=== PATIENT | female | born 1995 | race Caucasian/White ===

== ENCOUNTER → 2016-09-21 | Outpatient (REF) | payer BC, OTHER ==
[~2016-09-21] MED LIST: ACET65TA; AMO500 PO; AMOX875T; AMOXIL875 PO; CORTISPOR OTIC; LIDOPOW PO; TRAM50TA2; ULTRAM50 PO; [UNRECOGNIZED DRUG - CODE]; [UNRECOGNIZED DRUG - CODE] 1 TEASPOON; [UNRECOGNIZED DRUG - CODE] PO; [UNRECOGNIZED DRUG - CODE] PO; [UNRECOGNIZED DRUG - CODE] PO; [UNRECOGNIZED DRUG - CODE] PO; [UNRECOGNIZED DRUG - OTHER] TOPICAL
== END ==
LOC: M SFHCWAGY 10:06
PROVIDERS: ATTEND Nurse Practitioner Family
DX: Z12.4 Encounter for screening for malignant neoplasm of cervix (principal)
CPT/HCPCS: 87491; 87591; G0123

== ENCOUNTER → 2016-11-20 | Outpatient (CLI) | payer OTHER, BC ==
[~2016-11-20] MED LIST changes: -[UNRECOGNIZED DRUG - CODE] 1 TEASPOON; +[UNRECOGNIZED DRUG - CODE] [, 1 TEASPOON]
[2016-11-20 13:10] LABS: BASO % 0.6 % (0.0-1.0); EOS # 0.1 K/mm3 (0.0-0.50); EOS % 0.8 % (0.0-3.0); LARGE UNSTAINED CELL # 0.1 K/mm3 (0.0-0.4); LARGE UNSTAINED CELL % 1.3 % (0.0-4.0); LYMPH # 1.7 K/mm3 (1.5-6.5); MEAN CORPUSCULAR HEMOGLOBIN 29.7 pg (27.0-33.0); MEAN CORPUSCULAR HGB CONC 32.7 g/dl (32.0-36.5); MEAN CORPUSCULAR VOLUME 90.8 fl (80.0-96.0); MONO # 0.5 K/mm3 (0.0-0.8); MONO % 6.1 % (0.0-5.0); NEUTROPHILS # 5.3 K/mm3 (1.8-7.7); NEUTROPHILS % 70.3 % (36.0-66.0); PLATELET COUNT, AUTOMATED 291 k/mm3 (150-450); RED CELL DISTRIBUTION WIDTH 12.3 % (11.5-14.5); WHITE BLOOD COUNT 7.5 K/mm3 (4.0-10.0)
[2016-11-20 13:47] LABS: HBsAg Prenatal NEGATIVE (NEGATIVE)
== END ==
LOC: M SMT 09:37
PROVIDERS: ATTEND Advanced Practice Midwife
DX: Z34.81 Encounter for supervision of other normal pregnancy, first trimester (principal)

== ENCOUNTER → 2017-02-04 | Outpatient (CLI) | payer OTHER, BC ==
[~2017-02-04] MED LIST changes: +[UNRECOGNIZED DRUG - CODE] 1 TEASPOON; -[UNRECOGNIZED DRUG - CODE] [, 1 TEASPOON]
== END ==
LOC: M SMT 15:54
PROVIDERS: ATTEND Advanced Practice Midwife
DX: Z31.438 Encounter for other genetic testing of female for procreative management (principal)

== ENCOUNTER → 2017-02-11 | Outpatient (CLI) | payer OTHER, BC ==
--- NOTE | 2017-02-11 17:33 | REP ---
OB ULTRASOUND: Real-time sonographic evaluation of the gravid uterus is performed. There is a single living intrauterine gestation with estimated gestational age of 18 weeks 1 days based on LMP with EDC 07/14/2017. Today's measurements indicate appropriate growth. BPD 44 mm = 19 weeks 2 days, 82nd percentile HC 159 mm = 18 weeks 5 days, 69th percentile AC 122 mm = 17 weeks, 6 days, 45th percentile FL 27 mm = 18 weeks 2 days, 56th percentile HC/AC ratio 1.30, slightly above normal range of 1.07 to 1.26. Estimated weight 229 grams, 50th percentile. Cervix is closed and measures 4.8 cm in length. heart rate 137 beats per minute. SEEN/GROSSLY UNREMARKABLE Lateral ventricles Yes Posterior fossa Yes Upper lip No Four-chamber heart No LVOT No RVOT No Stomach Yes Cord insertion Yes Three vessel cord Yes Kidneys Yes Bladder Yes Spine Yes position: Variable. Placenta: Posterior and grade 0 with no previa or abruption. Amniotic fluid: Within normal limits. Signed by Danny Thornton MD 02/11/2017 05:45 P
== END ==
LOC: M RAD 12:17
PROVIDERS: ATTEND Advanced Practice Midwife
DX: Z36 Encounter for antenatal screening of mother (principal)

== ENCOUNTER → 2017-04-09 | Outpatient (CLI) | payer OTHER, BC ==
[2017-04-09 13:15] LABS: MEAN CORPUSCULAR HEMOGLOBIN 29.5 pg (27.0-33.0); MEAN CORPUSCULAR HGB CONC 32.6 g/dl (32.0-36.5); MEAN CORPUSCULAR VOLUME 90.5 fl (80.0-96.0); PLATELET COUNT, AUTOMATED 259 10^3/uL (150-450); WHITE BLOOD COUNT 11.8 10^3/uL (4.0-10.0)
== END ==
LOC: M SMT 09:35
PROVIDERS: ATTEND Advanced Practice Midwife
DX: Z34.82 Encounter for supervision of other normal pregnancy, second trimester (principal); Z3A.00 Weeks of gestation of pregnancy not specified

== ENCOUNTER → 2017-06-16 | Outpatient (REF) | payer OTHER, BC | LOC: M LAB REF 17:21 | DX: Z34.83 Encounter for supervision of other normal pregnancy, third trimester (principal); Z36.85 Encounter for antenatal screening for Streptococcus B ==

== ENCOUNTER 2017-07-17 23:44 | Inpatient (IN) | payer OTHER, BC ==
[2017-07-18] MEDS: LACTATED RINGER'S 1000 ML IV (01:30)
[2017-07-18 01:33] LABS: BASO % 0.3 % (0.0-1.0); EOS % 0.2 % (0.0-3.0); HEMATOCRIT 30.5 % (36.0-47.0); HEMOGLOBIN 9.9 g/dl (12.0-16.0); IMMATURE GRANULOCYTE % 0.7 % (0-3.0); LYMPH # 1.4 10^3/uL (1.5-6.5); LYMPH % 12.2 % (24.0-44.0); MEAN CORPUSCULAR HEMOGLOBIN 28.6 pg (27.0-33.0); MEAN CORPUSCULAR HGB CONC 32.5 g/dl (32.0-36.5); MEAN CORPUSCULAR VOLUME 88.2 fl (80.0-96.0); MONO # 0.9 10^3/uL (0.0-0.8); MONO % 7.3 % (0.0-5.0); NEUTROPHILS # 9.2 10^3/uL (1.8-7.7); NEUTROPHILS % 79.3 % (36.0-66.0); PLATELET COUNT, AUTOMATED 208 10^3/uL (150-450); RED BLOOD COUNT 3.46 10^6/uL (4.00-5.40); RED CELL DISTRIBUTION WIDTH 13.2 % (11.5-14.5); WHITE BLOOD COUNT 11.6 10^3/uL (4.0-10.0)
[2017-07-18 01:34] LABS: POS COUNT POS FLAG
[2017-07-18] MEDS: BUTORPHANOL 2 MG/ML INJ (J0595) IV ×2 (02:19→07:00)
[2017-07-18] MEDS: PROMETHAZINE INJ 25 MG/ML VIAL (J2550) IV ×2 (02:19→07:01)
[2017-07-18] MEDS: LR 1,000 ML IV ×3 (03:30→17:30)
[2017-07-18] MEDS ORDERED: OXYTOCIN 30 UNITS IN 0.9% NaCl 500ML IV BAG (J2590) As Ordered (05:13)
[2017-07-18] MEDS ORDERED: BUTORPHANOL 2 MG/ML INJ (J0595) As Ordered (05:32)
[2017-07-18] MEDS ORDERED: PROMETHAZINE INJ 25 MG/ML VIAL (J2550) As Ordered (05:33)
[2017-07-18] MEDS ORDERED: FENTANYL 2MCG/ML ROPIVACAINE 0.2% IN 0.9% NACL 200ML IVBAG As Ordered (06:34)
[2017-07-18] MEDS: OXYTOCIN DRIP 30 UNITS in APPROPRIATE DILUENT 1 EA IV ×2 (07:01→17:00)
[2017-07-18] MEDS ORDERED: diphenhydrAMINE INJ 50MG/ML VIAL (J1200) IV (08:00)
[2017-07-18] MEDS ORDERED: ONDANSETRON 4MG/2ML VIAL (J2405) IV ×2 (08:00→16:45)
[2017-07-18] MEDS ORDERED: EPIDURAL/PCA KEYS XX (08:00)
[2017-07-18] MEDS ORDERED: NALOXONE INJ 0.4 MG/1 ML VIAL (J2310) IV (08:00)
[2017-07-18] MEDS ORDERED: FENTANYL/ROPIVACAINE/NACL BAG 200 ML EPIDURAL (08:00)
[2017-07-18] MEDS ORDERED: REFRIGERATOR IV KEYS XX (08:00)
[2017-07-18] MEDS ORDERED: EPIDURAL COMMENT XX (08:00)
[2017-07-18] MEDS ORDERED: LACTATED RINGER'S 1000 ML IV (08:00)
[2017-07-18] MEDS: ePHEDrine SULFATE 25 MG/5 ML(5MG/ML) SYRINGE IV (08:17)
[2017-07-18] MEDS ORDERED: ACETAMINOPHEN 500 MG TAB PO (16:45)
[2017-07-18] MEDS ORDERED: PROMETHAZINE 25 MG TAB PO (16:45)
[2017-07-18] MEDS ORDERED: RHOGAM 300 MCG (1500 IU) INJ (J2790) IM (16:45)
[2017-07-18] MEDS: DIBUCAINE 1% OINTMENT 30GM TOP (20:00)
[2017-07-18] MEDS: DOCUSATE SODIUM 100 MG CAP PO (20:01)
[2017-07-18] MEDS: IBUPROFEN 800 MG TAB PO (20:01)
[2017-07-19] MEDS: IBUPROFEN 800 MG TAB PO (03:11)
[2017-07-19] MEDS: PRENATAL VITAMINS CHEWABLE TABLET PO (08:02)
[2017-07-20] MEDS: PRENATAL VITAMINS CHEWABLE TABLET PO (09:38)
== END 2017-07-20 10:25 | disposition home or self-care (01) | DRG 560 ==
LOC: M LDO 23:44 → M LDI 07-18 01:01 → M OBS 07-18 18:33
PROVIDERS: Obstetrics & Gynecology
PROC: 10E0XZZ Delivery of Products of Conception, External Approach (ICD-10-PCS; principal; 2017-07-18)
PROC: 0HQ9XZZ Repair Perineum Skin, External Approach (ICD-10-PCS; 2017-07-18)
PROC: 10907ZC Drainage of Amniotic Fluid, Therapeutic from Products of Conception, Via Natural or Artificial Opening (ICD-10-PCS; 2017-07-18)
DX: O48.0 Post-term pregnancy (principal); O69.89X0 Labor and delivery complicated by other cord complications, not applicable or unspecified; Z37.0 Single live birth; Z3A.40 40 weeks gestation of pregnancy; O70.0 First degree perineal laceration during delivery

== ENCOUNTER → 2018-04-27 | Outpatient (CLI) | payer OTHER, BC ==
[2018-04-27 18:56] LABS: BASO % 0.4 % (0.0-1.0); EOS # 0.1 10^3/uL (0.0-0.50); EOS % 0.6 % (0.0-3.0); HEMATOCRIT 37.8 % (36.0-47.0); HEMOGLOBIN 12.2 g/dl (12.0-15.5); IMMATURE GRANULOCYTE % 0.5 % (0-3.0); LYMPH # 2.1 10^3/uL (1.5-6.5); LYMPH % 21.1 % (24.0-44.0); MEAN CORPUSCULAR HEMOGLOBIN 28.7 pg (27.0-33.0); MEAN CORPUSCULAR HGB CONC 32.3 g/dl (32.0-36.5); MEAN CORPUSCULAR VOLUME 88.9 fl (80.0-96.0); MONO # 0.7 10^3/uL (0.0-0.8); MONO % 7.4 % (0.0-5.0); NEUTROPHILS # 6.9 10^3/uL (1.8-7.7); PLATELET COUNT, AUTOMATED 292 10^3/uL (150-450); RED BLOOD COUNT 4.25 10^6/uL (4.00-5.40); WHITE BLOOD COUNT 9.9 10^3/uL (4.0-10.0)
[2018-04-27 21:19] LABS: CHLAMYDIA DNA AMPLIFICATION NEGATIVE (NEGATIVE); GC DNA AMPLIFICATION NEGATIVE (NEGATIVE)
[2018-04-29 11:51] LABS: HEPATITIS C VIRUS ABY INDEX 0.1 INDEX (<0.8)
[2018-04-29 11:51] LABS: HBsAg Prenatal NEGATIVE (NEGATIVE); HIV 1&2 SCREEN CENTAUR NEGATIVE (NEGATIVE); RUBELLA IgG QUALITATIVE IMMUNE (IMMUNE)
== END ==
LOC: M SMT 11:11
DX: Z36.89 Encounter for other specified antenatal screening (principal)
CPT/HCPCS: 86762

== ENCOUNTER → 2018-05-10 | Outpatient (CLI) | payer OTHER ==
[~2018-05-10] MED LIST changes: +IBUP-1114 PO; +MAPA500T17 PO; +PRENTAB55 PO
== END ==
LOC: M WUC 15:12
PROVIDERS: ATTEND Obstetrics & Gynecology
DX: Z36.89 Encounter for other specified antenatal screening (principal)

== ENCOUNTER → 2018-06-30 | Outpatient (CLI) | payer BC, OTHER ==
[~2018-06-30] MED LIST changes: -MAPA500T17 PO; +MAPA500T2 PO
--- NOTE | 2018-07-01 02:24 | REP ---
Clinical: Anatomical evaluation. Comparison: None . Findings: Examination demonstrates a single live intrauterine in breech presentation. motion is identified by technologist. Placenta is noted anterior/left lateral and grade grade 1 without evidence for placenta previa or abruption. Amniotic fluid volume is normal. Cervix measures 4.5 cm in length and appears closed. No evidence for nuchal cord. Gestational age by LMP 19 weeks 3 days with CAT 11/21/2018 . Gestational age by current measurements 20 weeks 0 days with CAT 11/17/2018 . FHR equals 157 beats per minute. BPD 4.8 cm 20 weeks 3 days HC 17.2 cm 19 weeks 5 days AC 14.3 cm 19 weeks 5 days FL 3.3 cm 20 weeks 1 day HL 3.0 cm 20 weeks 0 days HC/AC ratio 1.20 Estimated weight 320 grams ( 65th percentile). Anatomical assessment demonstrates normal structures including cranium, choroid plexus, cavum, cerebellum/posterior fossa, facial features, lungs, diaphragm, stomach, cord insertion/three-vessel cord, kidneys/bladder, spine, and extremities. Limited evaluation of the facial profile and heart/ ventricular outflow tract. Impression: 1. Single live intrauterine in breech presentation demonstrating appropriate interval growth. 2. Anatomical limitations as noted above may warrant reevaluation and follow-up. Electronically Signed by Travis Baker MD 07/01/2018 02:15 A
== END ==
LOC: M RAD 15:55
PROVIDERS: ATTEND Advanced Practice Midwife
DX: Z34.82 Encounter for supervision of other normal pregnancy, second trimester (principal)

== ENCOUNTER → 2018-07-22 | Outpatient (CLI) | payer BC, OTHER ==
--- NOTE | 2018-07-22 11:46 | REP ---
Clinical: Anatomical evaluation. Comparison: 06/30/2018 . Findings: Examination demonstrates a single live intrauterine in cephalic presentation. motion is identified by technologist. Placenta is noted anterior and grade grade zero without evidence for placenta previa or abruption. Amniotic fluid volume is normal. Cervix measures 5.0 cm in length and appears closed. No evidence for nuchal cord. Gestational age by LMP 22 weeks 4 days with CAT 11/21/2018 . Gestational age by current measurements 22 weeks 6 days with CAT 11/19/2018 . FHR equals 149 beats per minute. Estimated weight 540 grams ( 53rd percentile). Anatomical assessment demonstrates normal structures including cranium, choroid plexus, cavum, cerebellum/posterior fossa, facial features, lungs, four-chamber heart/ventricular outflow tracts, diaphragm, stomach, cord insertion/three-vessel cord, kidneys/bladder, spine, and extremities. Impression: 1. Single live intrauterine in cephalic presentation demonstrating appropriate interval growth. 2. Anatomical assessment is complete and normal. Electronically Signed by Travis Baker MD 07/22/2018 11:38 A
== END ==
LOC: M RAD 09:35
PROVIDERS: ATTEND Advanced Practice Midwife
DX: O99.89 Other specified diseases and conditions complicating pregnancy, childbirth and the puerperium (principal); Z3A.22 22 weeks gestation of pregnancy

== ENCOUNTER → 2018-08-18 | Outpatient (CLI) | payer BC, OTHER ==
[2018-08-18 13:47] LABS: HEMATOCRIT 32.2 % (36.0-47.0); HEMOGLOBIN 10.4 g/dl (12.0-15.5); MEAN CORPUSCULAR HEMOGLOBIN 29.2 pg (27.0-33.0); MEAN CORPUSCULAR HGB CONC 32.3 g/dl (32.0-36.5); MEAN CORPUSCULAR VOLUME 90.4 fl (80.0-96.0); PLATELET COUNT, AUTOMATED 217 10^3/uL (150-450); RED BLOOD COUNT 3.56 10^6/uL (4.00-5.40); WHITE BLOOD COUNT 10.1 10^3/uL (4.0-10.0)
== END ==
LOC: M SMT 09:35
PROVIDERS: ATTEND Advanced Practice Midwife
DX: Z34.82 Encounter for supervision of other normal pregnancy, second trimester (principal); Z3A.00 Weeks of gestation of pregnancy not specified

== ENCOUNTER → 2018-10-25 | Outpatient (REF) | payer BC | LOC: M LAB REF 16:58 | PROVIDERS: ATTEND Obstetrics & Gynecology | DX: Z34.83 Encounter for supervision of other normal pregnancy, third trimester (principal) ==

== ENCOUNTER → 2018-10-27 | Outpatient (CLI) | payer BC ==
--- NOTE | 2018-10-28 03:14 | REP ---
Clinical: Growth evaluation. Comparison: 07/22/2018 . Findings: Examination demonstrates a single live intrauterine in cephalic presentation. motion is identified by technologist. Placenta is noted anterior and grade three without evidence for placenta previa or abruption. Amniotic fluid volume is normal. Cervix appears closed. No evidence for nuchal cord. Gestational age by LMP 36 weeks 3 day with CAT 11/21/2018 . Gestational age by current measurements 36 weeks 4 days with CAT 11/20/2018 . FHR equals 160 beats per minute. BPD 9.3 cm 38 weeks 0 days HC 32.8 cm 37 weeks 2-day AC 31.8 cm 35 weeks 5 days FL 7.1 cm 36 weeks 3 days HL 6.2 cm 35 weeks 4 days HC/AC ratio 1.03 Estimated weight 2913 grams ( 51 percentile). Amniotic fluid index: 17.7 cm Umbilical cord SD ratio: 2.24 Impression: Single live intrauterine in cephalic presentation demonstrating appropriate interval growth. No gross abnormalities are identified. Electronically Signed by Travis Baker MD 10/28/2018 03:06 A
== END ==
LOC: M RAD 11:02
PROVIDERS: ATTEND Obstetrics & Gynecology
DX: O26.843 Uterine size-date discrepancy, third trimester (principal); Z3A.36 36 weeks gestation of pregnancy

== ENCOUNTER 2018-11-14 08:35 | Inpatient (IN) | payer BC ==
[~2018-11-14] VITALS: Ht 170.2 cm; Wt 84.0 kg
[2018-11-14] VITALS (7 sets, daily range): BP systolic 112–130; BP diastolic 57–71
[2018-11-14] MEDS ORDERED: LR 1,000 ML IV SCH (11:19)
[2018-11-14] MEDS ORDERED: LACTATED RINGER'S 1000 ML IV STA (11:19)
[2018-11-14] MEDS ORDERED: OXYTOCIN DRIP 30 UNITS in APPROPRIATE DILUENT 1 EA IV SCH ×2 (11:30→12:56)
[2018-11-14 12:00] LABS: HEMATOCRIT 31.7 % (36.0-47.0); HEMOGLOBIN 10.2 g/dl (12.0-15.5); MEAN CORPUSCULAR HEMOGLOBIN 28.4 pg (27.0-33.0); MEAN CORPUSCULAR HGB CONC 32.2 g/dl (32.0-36.5); MEAN CORPUSCULAR VOLUME 88.3 fl (80.0-96.0); PLATELET COUNT, AUTOMATED 202 10^3/uL (150-450); RED BLOOD COUNT 3.59 10^6/uL (4.00-5.40); WHITE BLOOD COUNT 13.8 10^3/uL (4.0-10.0)
[2018-11-14] MEDS ORDERED: ACETAMINOPHEN 500 MG TAB PO PRN (13:00)
[2018-11-14] MEDS ORDERED: IBUPROFEN 800 MG TAB PO PRN (13:00)
[2018-11-14] MEDS ORDERED: METHYLERGONOVINE MALEATE 0.2 MG TAB PO PRN (13:00)
[2018-11-14] MEDS ORDERED: RHOGAM 300 MCG (1500 IU) INJ (J2790) IM SCH (13:00)
[2018-11-14] MEDS ORDERED: MEASLES,MUMPS,RUBELLA VACCINE INJ (MMR-II) (90707) SC SCH (13:00)
[2018-11-14] MEDS ORDERED: DIBUCAINE 1% OINTMENT 30GM TOP PRN (13:00)
[2018-11-14] MEDS ORDERED: ACETAMINOPHEN TAB 650MG DOSE (2X325MG) PO PRN (13:00)
[2018-11-14] MEDS ORDERED: DOCUSATE SODIUM 100 MG CAP PO PRN (13:00)
[2018-11-14] MEDS ORDERED: IBUPROFEN 600 MG TAB PO PRN (13:00)
--- NOTE | 2018-11-14 16:54 | HPE ---
DATE OF ADMISSION: 11/14/2018 The patient is a 23-year-old female who is a 2 para 1 0 0 1 at 39 weeks gestation with an CAT of 11/21/2018 based off of her last menstrual cycle and consistent with her first trimester ultrasound. Patient initiated care in her first trimester with [facility]. Her has been uncomplicated. She presents to labor and delivery with complaints of contractions that are every 5 minutes. She reports her contractions started at 1:30 am. She reports active movement. She denies vaginal bleeding or leaking of fluid. ALLERGIES: No known drug allergies. CURRENT MEDICATIONS: vitamins. PAST PREGNANCIES: 06/2017, she had a spontaneous vaginal delivery of a female weighing 8 pounds at 40 weeks and 6 weeks gestation that was uncomplicated. LABS: Blood type is A positive with her antibody screen that is negative. Her H and H in the first trimester was 12.2 and 37.8 with platelets of 292. She is immune to rubella, nonreactive to VDRL. Her urine has no growth. Hepatitis B surface antigen was negative. HIV was negative. Hepatitis C is nonreactive. Gonorrhea and chlamydia are both negative. Her NIPT testing was low risk and showed that she was having a normal male. Her 1 hour glucose tolerance test was 110 with a hemoglobin and hematocrit of 10.4 and 32.2 with platelets of 217. Her GBS was negative. PAST MEDICAL HISTORY: Gallbladder issues. SURGICAL HISTORY: She has had her wisdom teeth removed. FAMILY HISTORY: Diabetes. SOCIAL HISTORY: Patient is . She denies a history of physical, emotion or sexual abuse. She denies being a smoker. She denies a history of alcohol abuse or use during her or drug abuse or use during her or prior to her . She has no history of sexually transmitted infections. VITAL SIGNS: Temperature 99. Her respiratory rate is 18. Her blood pressure was 112/71 and her heart rate was 93. Initial cervical exam at 0908 was 2 cm dilated, 75% effaced and very posterior - 2 station. heart rate 140 moderate variability, positive accelerations. No decelerations. Contraction 5-6 minutes apart. PHYSICAL EXAMINATION: GENERAL: Alert and oriented. RESPIRATORY: Regular rate with no use of accessory muscles. ABDOMEN: Gravid and soft with palpation without tenderness. Palpates mild to moderate with contractions. EXTREMITIES: Generalized edema with no pitting. No clonus noted. ASSESSMENT: Intrauterine at 39 weeks gestation, active labor, category 1 heart rate tracing, a negative GBS. PLAN: Patient admitted to labor and delivery due to increasingly getting more uncomfortable with contractions and active labor. Saline lock and labs per unit protocol, out of bed at jigar, clear liquid diet. Anesthesia consult per patient's request. 800 mL LR bolus prior to epidural. Anticipate cervical change and spontaneous vaginal delivery. IV Pitocin ordered if needed for labor. MTDD
[2018-11-15 06:00] VITALS: BP 109/55
[2018-11-15] MEDS ORDERED: IBUP80TA PO (07:09)
[2018-11-15] MEDS ORDERED: ACET-683 PO (07:09)
--- NOTE | 2018-11-15 08:37 | DN ---
DELIVERY DATE: 11/14/2018 TIME: 12:18 p.m. STATUS: Delivered. Spontaneous vaginal delivery. PROVIDER: Sharon Torre CNM, [facility] ANESTHESIA: None. ESTIMATED BLOOD LOSS: 200. FINDINGS: Male, 7 pounds 8 ounces, 3400 grams, 's 8/9, precipitous delivery, velamentous cord insertion with avulsion or cord. Patient is a 23-year-old female who is now a 2 para 2 0 0 2 at 39 weeks gestation who presented to labor and delivery in active labor. She progressed to fully dilated at 12:13 and pushed to a living male in the CÉSAR position with restitution to ROT at 12:18 p.m.. The anterior shoulder delivered with ease and the corpus immediately followed. The baby was placed on the maternal abdomen active and crying with stimulation. The cord was clamped times two after 3 minutes and cut by the father of the baby. A three vessel cord was noted. The placenta delivered manually after the cord was avulsed and noted that there was a velamentous insertion. Dr. Hernandez was notified when the avulsion of the cord happened. The placenta was delivered intact at 12:34. Uterine hemostasis was achieved rapid infusion of IV pitocin and fundal massage. The vagina, perineum and cervix were inspected and found to be intact. The parents plan on naming their Crew. Mom plans to breastfeed. Both mom and baby are in stable condition. All counts of instruments and sponges were correct.
[2018-11-15] MEDS ORDERED: PRENATAL VITAMINS CHEWABLE TABLET PO SCH (09:00)
== END 2018-11-15 17:10 | disposition home or self-care (01) | DRG 560 ==
LOC: M LDO 08:35 → M LDI 11:16 → M OBS 14:26
PROVIDERS: ADMIT Advanced Practice Midwife; ATTEND Advanced Practice Midwife
PROC: 10E0XZZ Delivery of Products of Conception, External Approach (ICD-10-PCS; principal; 2018-11-14)
DX: O69.89X0 Labor and delivery complicated by other cord complications, not applicable or unspecified (principal); Z37.0 Single live birth; Z3A.39 39 weeks gestation of pregnancy

== ENCOUNTER → 2020-03-27 | Outpatient (CLI) | payer BC, OTHER ==
[~2020-03-27] MED LIST changes: +ACET-683 PO; +IBUP80TA PO
[2020-03-27 14:12] LABS: HEMATOCRIT 38.3 % (36.0-47.0); HEMOGLOBIN 12.3 g/dl (12.0-15.5); MEAN CORPUSCULAR HEMOGLOBIN 28.9 pg (27.0-33.0); MEAN CORPUSCULAR HGB CONC 32.1 g/dl (32.0-36.5); MEAN CORPUSCULAR VOLUME 89.9 fl (80.0-96.0); PLATELET COUNT, AUTOMATED 287 10^3/uL (150-450); RED BLOOD COUNT 4.26 10^6/uL (4.00-5.40)
[2020-03-27 15:04] LABS: HIV 1&2 SCREEN CENTAUR NEGATIVE (NEGATIVE)
== END ==
LOC: M PLALAB 08:58
PROVIDERS: ATTEND Specialist
DX: Z34.01 Encounter for supervision of normal first pregnancy, first trimester (principal)

== ENCOUNTER → 2020-04-25 | Outpatient (REF) | payer OTHER | LOC: M PLALAB 09:21 | PROVIDERS: ATTEND Advanced Practice Midwife | DX: Z34.91 Encounter for supervision of normal pregnancy, unspecified, first trimester (principal) ==

== ENCOUNTER → 2020-06-12 | Outpatient (CLI) | payer OTHER ==
--- NOTE | 2020-06-13 11:02 | REP ---
INDICATION: ANATOMY COMPARISON: None. TECHNIQUE: Transabdominal obstetrical ultrasound with color Doppler evaluation. FINDINGS: Examination demonstrates a single live intrauterine in breech presentation. motion is identified by technologist. Placenta is noted anterior and grade 1 without evidence for placenta previa or abruption. Amniotic fluid volume is normal. Cervix measures 3.8 cm in length and appears closed.. Gestational age by current measurements 20 weeks 2 days with CAT 10/28/2020. FHR equals 153 beats per minute. BPD: 4.6 cm 19 weeks 6 days HC: 17.0 cm 19 weeks 4 days AC: 15.2 cm 20 weeks 3 days FL: 3.3 cm 20 weeks 1 day HL: 3.3 cm 21 weeks 0 days HC/AC: 1.12 Estimated weight 340 grams (46thpercentile). Anatomical assessment demonstrates normal structures including cranium, choroid plexus, cavum, cerebellum/posterior fossa, facial features, lungs, ventricular outflow tracts, diaphragm, stomach, cord insertion/three-vessel cord, kidneys/bladder, spine, and extremities. IMPRESSION: Single live intrauterine in breech presentation demonstrating appropriate estimated weight. Limited evaluation of the heart. Remainder of the anatomical assessment is complete and normal. <Electronically signed by Travis Baker > 06/13/20 [id number]
== END ==
LOC: M WHC 14:21
PROVIDERS: ATTEND Advanced Practice Midwife
DX: O32.1XX0 Maternal care for breech presentation, not applicable or unspecified (principal); Z3A.20 20 weeks gestation of pregnancy

== ENCOUNTER → 2020-07-12 | Outpatient (CLI) | payer OTHER ==
--- NOTE | 2020-07-12 19:35 | REP ---
INDICATION: F/U ANATOMY/CAT 11/01/20. COMPARISON: 06/12/2020 TECHNIQUE: Limited Ob ultrasound for re-evaluation anatomy as the four-chamber heart view was not optimally seen. FINDINGS: Scanning demonstrates a viable single intrauterine gestation in a breech lie. motion is observed and heart rate is recorded at 149 beats per minute. An anterior, grade 1 placenta is seen without evidence of previa. Mid cord insertion noted. Amniotic fluid is subjectively normal. Closed cervical length is measured at 4 cm transabdominally. No extrauterine abnormality is observed. There has been appropriate interval growth. Four-chamber heart view was unremarkable except for a small echogenic intracardiac focus in the left ventricle, likely calcification on the chordee tendineae. Biometry chart: BPD 6.1 cm; 24 weeks 5 days Head circumference 22.2 cm; 24 weeks 2 days Abdominal circumference 19.9 cm; 24 weeks 4 days Femur length 4.5 cm; 24 weeks 5 days Humeral length 4.3 cm; 25 weeks 5 days HC/AC ratio normal 1.11 Cephalic index normal 0.77 Estimated weight 711 grams, 1 pounds 9 ounces, 69th percentile for 24 weeks 0 days. IMPRESSION: Viable single intrauterine gestation at 24 weeks 5 days by today's composite sonographic criteria. Expected gestational age estimate based on prior sonography is 24 weeks is 4 days. CAT by prior sonography 10/28/2020. <Electronically signed by Braden Sena > 07/12/20 [id number]
== END ==
LOC: M WHC 14:19
PROVIDERS: ATTEND Advanced Practice Midwife
DX: Z36.9 Encounter for antenatal screening, unspecified (principal); Z3A.24 24 weeks gestation of pregnancy

== ENCOUNTER → 2020-08-02 | Outpatient (REF) | payer OTHER ==
[2020-08-02 11:10] LABS: HEMATOCRIT 33.5 % (36.0-47.0); HEMOGLOBIN 10.8 g/dl (12.0-15.5); MEAN CORPUSCULAR HEMOGLOBIN 29.8 pg (27.0-33.0); MEAN CORPUSCULAR HGB CONC 32.2 g/dl (32.0-36.5); MEAN CORPUSCULAR VOLUME 92.3 fl (80.0-96.0); PLATELET COUNT, AUTOMATED 244 10^3/uL (150-450); RED BLOOD COUNT 3.63 10^6/uL (4.00-5.40); WHITE BLOOD COUNT 10.5 10^3/uL (4.0-10.0)
== END ==
LOC: M PLALAB 08:04
PROVIDERS: ATTEND Advanced Practice Midwife
DX: Z34.82 Encounter for supervision of other normal pregnancy, second trimester (principal); Z3A.00 Weeks of gestation of pregnancy not specified

== ENCOUNTER → 2020-10-02 | Outpatient (REF) | payer OTHER | LOC: M SFHCWAGY 12:48 | PROVIDERS: ATTEND Advanced Practice Midwife | DX: O99.013 Anemia complicating pregnancy, third trimester (principal); Z3A.00 Weeks of gestation of pregnancy not specified ==

== ENCOUNTER → 2020-10-25 | Outpatient (CLI) | payer OTHER ==
--- NOTE | 2020-10-25 13:40 | REP ---
INDICATION: SIZE/DATE DISCREP/GROWTH COMPARISON: 07/12/2020 TECHNIQUE: Transabdominal obstetrical ultrasound with color Doppler evaluation. FINDINGS: Examination demonstrates a single live intrauterine in cephalic presentation. motion is identified by technologist. Placenta is noted anterior and grade 3 without evidence for placenta previa or abruption. Amniotic fluid volume is normal. Selected gestational age: 39 weeks 0 days with CAT 11/01/2020. Gestational age by current measurements 38 weeks 6 days with CAT 11/02/2020. FHR equals 142 beats per minute. BPD: 9.5 cm at 30 weeks 4 days HC: 34.1 cm at 39 weeks 2 days AC: 34.4 cm at 38 weeks 2 days FL: 7.6 cm at 30 weeks 6 days HL: 6.8 cm at 39 weeks 2 days HC/AC: 0.99 Estimated weight 3522 grams (58thpercentile). CHELSIE: 12.3 cm (7.2-22.6) Umbilical artery SD ratio: 2.75 (1.51-3.29) IMPRESSION: Single live advanced gestation in cephalic presentation demonstrating appropriate estimated weight and growth. <Electronically signed by Travis Baker > 10/25/20 [id number]
== END ==
LOC: M WHC 12:55
PROVIDERS: ATTEND Advanced Practice Midwife
DX: O26.843 Uterine size-date discrepancy, third trimester (principal); Z3A.39 39 weeks gestation of pregnancy

== ENCOUNTER 2020-11-04 23:49 | Inpatient (IN) | payer OTHER ==
[~2020-11-04] VITALS: Ht 172.7 cm; Wt 91.5 kg
[2020-11-05] VITALS (36 sets, daily range): BP systolic 86–142; BP diastolic 46–79
[2020-11-05] MEDS ORDERED: LACTATED RINGER'S 1000 ML IV STA (00:18)
[2020-11-05] MEDS ORDERED: LIDOCAINE 1% MDV 20ML VIAL INFIL PRN (00:20)
[2020-11-05] MEDS ORDERED: CARBOPROST TROMETHAMINE 250 MCG/ML AMP IM PRN (00:20)
[2020-11-05] MEDS ORDERED: METHYLERGONOVINE MALEATE 0.2 MG/ML VIAL (J2210) IM PRN (00:20)
[2020-11-05] MEDS ORDERED: TRANEXAMIC ACID INJection 1,000 MG in NS 100 ML IV PRN (00:20)
[2020-11-05] MEDS ORDERED: OXYTOCIN DRIP 30 UNITS in IV 1 EA IV SCH (00:20)
[2020-11-05] MEDS ORDERED: LR 1,000 ML IV SCH (00:20)
[2020-11-05] MEDS ORDERED: OXYTOCIN DRIP 30 UNITS in IV 1 EA IV PRN (00:20)
--- NOTE | 2020-11-05 00:37 | HPEPDOC ---
Obstetrical History & Physical General Date of Admission Nov 04, 2020 at 23:49 Primary Care Physician: SONY ESPARZA CNM History of Present Illness Aaron is a 25-year-old female who is a who is 40.3 weeks gestation with an CAT of 11/01/20 based off of her LMP and consistent with her first trimester ultrasound. Her has been uncomplicated. She presents for an elective induction of labor. She reports active movement and some contractions. She denies leaking of fluid or vaginal bleeding. Information Provided By: Patient Age: 25 : 3 Term: 2 Pre-term: 0 Abortions: 0 Livin Care Care: Good Care Dating Final EDC: Nov 01, 2020 Final EDC by: LMP EGA at Admission: 40.3 Past Medical History Past Obstetrical History #1: Past Obstetrical History: Primgravida Date of Delivery: Jul 18, 2017 Gestation: 40 Type of Delivery: Spontaneous Vaginal Del. Sex of : Female (8 lbs) Complications: No Past Obstetrical History #2: Past Obstetrical History: Multigravida Date of Delivery: Nov 14, 2018 Gestation: 39 Type of Delivery: Spontaneous Vaginal Del. Sex of : Male (7 lbs 5 oz) Complications: No WIRE DRAWER History: Ovarian cysts Past Medical History Medical History migraines 2nd degree scoliosis Surgical History: [place] teeth Family History Significant Family History: Cancer (prostate), Diabetes, Hypertension Social History Social history [place] [facility] [employer] Marital Status: Family situation: Spouse/partner home Psychosocial History: No pertinent psych hx * Smoker: non-smoker Alcohol: Denies Drugs: denies Abuse Violence Screening Have you been hit/kicked/slapp: No Have you been sexually assault: No Allergies Coded Allergies: No Known Allergies (Unverified , 11/14/18) Medications Scheduled [id number]/Iron Fum/Folic/Docusate ( 19 Tablet) 1 Tab Tab, 1 TAB PO DAILY Scheduled PRN Acetaminophen (Acetaminophen) 500 Mg Tablet, 1,000 MG PO Q6HP PRN for PAIN Ibuprofen (Ibuprofen) 800 Mg Tablet, 800 MG PO Q8HP PRN for PAIN Physical Examination Physical Examination GENERAL: Alert and oriented times three. BREAST: . ABDOMEN: Gravid and non-tender to touch. FETUS: Is vertex (VTX) by sterile vaginal examination (SVE), fetus is vertex (VTX) by Otis. LUNGS: Clear to auscultation (CTA). EXTREMITIES: No edema. No clonus. Deep tendon reflexes (DTRs) + 2. Laboratory Data 24H LABS Laboratory Tests 2 11/04/20 23:54: Serology Scanned Report Hepatitis B Testing Urine Culture: No Growth Pertinent Laboratoy Data Blood Type: A+ RBC Antibody Screen: Negative HIV: Negative Hepatitis B: Negative Hepatitis C: Negative Rapid Plasma Reagin: Nonreactive Rubella: Immune Chlamydia/Gonorrhea: Negative Group B Streptococcus: Negative Glucose Tolerance Test: 100 Anatomy Ultrasound Ultrasound Date: Oct 23, 2020 Placenta Location: Anterior Normal Anatomy: Yes Placenta Previa: No Estimated Weight (grams): 3522 Vaginal Examination Dilation: 3 cm Effacement: other (75%) Station: -2 Cervical Consistency: Soft Cervical Position: Middle Presentation: Cephalic presentation Assessment Heart Rate (FHR): 130 Variability: Moderate Accelerations: Positive Decelerations: None Tocometer Contractions: Yes Frequency: regular Multi-drug resistant Organism: No history of MDRO Assessment/Plan Assessment IUP at GBS negative Category I FHR tracing elective induction of labor Plan Admit to L&D. OOB ad jigar. Diet: clear. Group B Streptococcus (GBS) negative. Labs and intravenous (IV) per unit protocol. Counseled on Pitocin for induction of labor. Anesthesia consult per patient's request. Lactated Ringers (LR): Bolus 800 mL prior to epidural, then at 125 mL/hr. Anticipate cervical change and . C-S as appropriate. SONY ESPARZA CNM Nov 05, 2020 00:37
[2020-11-05 00:56] LABS: HEMOGLOBIN 10.4 g/dl (12.0-15.5); MEAN CORPUSCULAR HEMOGLOBIN 29.5 pg (27.0-33.0); MEAN CORPUSCULAR HGB CONC 32.5 g/dl (32.0-36.5); MEAN CORPUSCULAR VOLUME 90.7 fl (80.0-96.0); PLATELET COUNT, AUTOMATED 220 10^3/uL (150-450); RED BLOOD COUNT 3.53 10^6/uL (4.00-5.40); WHITE BLOOD COUNT 8.5 10^3/uL (4.0-10.0)
[2020-11-05] MEDS ORDERED: FENTANYL 2MCG/ML ROPIVACAINE 0.2% IN 0.9% NACL 100ML IVBAG As Ordered ONE (02:37)
[2020-11-05] MEDS ORDERED: CALCIUM CARBONATE 500 MG CHEW U/D PO PRN (03:10)
[2020-11-05] MEDS ORDERED: REFRIGERATOR IV KEYS XX PRN (03:50)
[2020-11-05] MEDS ORDERED: FENTANYL/ROPIVACAINE/NACL BAG 100 ML EPIDURAL SCH (03:50)
[2020-11-05] MEDS ORDERED: LACTATED RINGER'S 1000 ML IV PRN (03:50)
[2020-11-05] MEDS ORDERED: diphenhydrAMINE 50MG/ML VIAL (J1200) IV PRN (03:50)
[2020-11-05] MEDS ORDERED: ONDANSETRON 4MG/2ML VIAL IV PRN ×2 (03:50→11:05)
[2020-11-05] MEDS ORDERED: EPIDURAL COMMENT XX SCH (03:50)
[2020-11-05] MEDS ORDERED: NALOXONE INJ 0.4MG/1ML VIAL (J2310 PER 1MG) IV PRN (03:50)
[2020-11-05] MEDS ORDERED: EPIDURAL/PCA KEYS XX PRN (03:50)
[2020-11-05] MEDS: ePHEDrine SULFATE 25 MG/5 ML(5MG/ML) SYRINGE IV PRN ×3 (04:25→05:22)
--- NOTE | 2020-11-05 08:27 | IPNPDOC ---
Obstetrical Progress Note Date of Service Nov 05, 2020 Subjective comfortable with epidural. Does not feel contractions. Objective Vital Signs Date Time Temp Pulse Resp B/P (MAP) Pulse Ox O2 Delivery O2 Flow Rate FiO2 11/05/20 05:46 97.4 114 18 108/64 (79) Assessment Variability: Moderate Accelerations: Positive Decelerations: None Heart Rate Tracing: Category I Tocometer Contractions: Yes Frequency: regular Duration: less than 60 seconds Strength: palpated as moderate Sterile Vaginal Examination Dilation: 4 cm Effacement (%): 70% Station: -2 Cervical Consistency: Medium Postion/Presentation: Cephalic presentation Assessment and Plan Age: 25 : 3 Term: 2 Pre-term: 0 Abortions: 0 Livin Status: Reassuring Additional Comments AROM with moderate meconium noted 25 yo at 40 4/7 weeks, in labor following induction Pitocin at 4 mu/min currently Pt made aware of meconium Continuous monitoring of fetus per protocol TOM BLANK MD Nov 05, 2020 08:26
[2020-11-05] MEDS ORDERED: RHOGAM 300 MCG (1500 IU) INJ (J2790) IM SCH (11:05)
[2020-11-05] MEDS ORDERED: MEASLES,MUMPS,RUBELLA VACCINE INJ (MMR-II) (90707) SC SCH (11:05)
[2020-11-05] MEDS ORDERED: DOCUSATE SODIUM 100MG CAPSULE PO PRN (11:05)
[2020-11-05] MEDS ORDERED: METHYLERGONOVINE MALEATE 0.2 MG TAB PO PRN (11:05)
[2020-11-05] MEDS ORDERED: ACETAMINOPHEN TAB 650MG DOSE (2X325MG) PO PRN (11:05)
[2020-11-05] MEDS ORDERED: OXYTOCIN DRIP 30 UNITS in IV 1 EA IV ONE (11:05)
[2020-11-05] MEDS ORDERED: IBUPROFEN 600MG TAB PO PRN (11:05)
[2020-11-05] MEDS ORDERED: DIBUCAINE 1% OINTMENT 30GM TOP PRN (11:05)
[2020-11-05] MEDS ORDERED: ACETAMINOPHEN 500 MG TAB PO PRN (11:05)
--- NOTE | 2020-11-05 11:10 | DNPDOC ---
[facility] Delivery Note Delivery Note DATE OF DELIVERY: November 05, 2020 PREDELIVERY DIAGNOSIS: 40-3/7 weeks' gestation, labor induction. POST DELIVERY DIAGNOSIS: Delivered. PROCEDURE: Spontaneous vaginal delivery. DRUM BUILDER: Dr. Tom Blank MD ANESTHESIA: epidural. ESTIMATED BLOOD LOSS: 300 mL. FINDINGS: 7 pound 5 ounce male infant, Score 8/9, moderate meconium present. DELIVERY SUMMARY: Patient is a 25-year-old 3 now para 3 who was admitted to labor and delivery for labor induction. She received Misoprostol. She eventually got an epidural. AROM was performed with moderate meconium present. She progressed well in labor. After a 5 minute second stage of labor she had a spontaneous vaginal delivery of a 7 lb. 5 oz. male infant. No nuchal cord. Shoulders delivered with ease. Placenta delivered spontaneously and appeared intact. Pt received IV Pitocin immediately after delivery of the placenta. No vaginal lacerations present. Sponge counts correct. TOM BLANK MD Nov 05, 2020 11:10
[2020-11-05] MEDS: IBUPROFEN 800 MG TAB PO PRN (19:50)
[2020-11-06] MEDS: IBUPROFEN 800 MG TAB PO PRN (05:37)
[2020-11-06 06:00] VITALS: BP 111/57
[2020-11-06] MEDS ORDERED: PRENATAL VITAMINS CHEWABLE TABLET PO SCH (09:00)
== END 2020-11-06 12:37 | disposition home or self-care (01) | DRG 807 ==
LOC: M LDI 23:49 → M OBS 11-05 12:10
PROVIDERS: ADMIT Advanced Practice Midwife; ATTEND Specialist
PROC: 10E0XZZ Delivery of Products of Conception, External Approach (ICD-10-PCS; principal; 2020-11-05)
PROC: 3E0P7GC Introduction of Other Therapeutic Substance into Female Reproductive, Via Natural or Artificial Opening (ICD-10-PCS; 2020-11-05)
PROC: 10907ZC Drainage of Amniotic Fluid, Therapeutic from Products of Conception, Via Natural or Artificial Opening (ICD-10-PCS; 2020-11-05)
DX: O48.0 Post-term pregnancy (principal); Z37.0 Single live birth; Z3A.40 40 weeks gestation of pregnancy; O77.0 Labor and delivery complicated by meconium in amniotic fluid

== ENCOUNTER → 2023-04-21 | Outpatient (REF) | payer OTHER | LOC: M SFHCWAGY 10:18 | PROVIDERS: ATTEND Nurse Practitioner Family | DX: Z12.4 Encounter for screening for malignant neoplasm of cervix (principal) | CPT/HCPCS: 87624; G0123 ==